=== PATIENT | male | born 1950 | race Caucasian/White ===

== ENCOUNTER → 2017-04-23 | Outpatient (CLI) | payer OTHER ==
[~2017-04-23] VITALS: Ht 182.9 cm; Wt 81.6 kg
[~2017-04-23] MED LIST: ANASPAZ0.125 MG PO; ANDROGEL5 GM TOP; ANDROGEL5 GM TRANSDERM; APAP500 PO; ASPIR 8181 MG PO; COLACE 100 MG100 MG; DEPO-TESTO100 MG/1 M IM; DIABETA 5MG TABL5 MG PO; GLUCOPHAGE500 MG PO; HYDROCODON-ACE1 EAC7 PO; LIPITOR20 MG PO; LISINOPRIL5 MG PO; NEURONTIN600 MG PO; ROBAXIN 750 MG750 M1; TRAMADOL 50 MG50 MG PO
--- NOTE | ~2017-04-23 | S ---
[facility] [place] [address] SURGICAL PATH RPT PROCEDURE Name: RILEY DANIELS Room #: [facility]#: [id number] Admission: 04/23/17 Date of : 48 Discharge: Report #: [id number] Path Case #: [id number] PATHOLOGY REPORT COLLECTION DATE: 04/23/2017 RECEIVED DATE: 04/23/2017 SUBMITTING PHYS: Dr. Gilson Green OTHER PHYS: Dr. Mervin Jon SPECIMEN(S) RECEIVED: A.Ascending colon polyp B.Transverse colon polyp * * * * * * * * * * * * FINAL DIAGNOSIS: A. "Ascending colon polyp", biopsy: - Tubular adenoma; no high-grade dysplasia. B. "Transverse colon polyp", biopsy: - Tubular adenoma; no high-grade dysplasia. (CLW:mel; 04/25/2017) PATHOLOGIST: Elaine Davila M.D. REPORT ELECTRONICALLY SIGNED BY: Elaine Davila M.D. DATE/TIME: 04/25/2017 15:24 * * * * * * * * * * * * GROSS PATHOLOGY: A. Received in formalin labeled "Riley Daniels, ascending colon polyp," are 3 segments of dudley soft tissue measuring 1.0 x 0.2 x 0.2 cm in aggregate dimensions and ranging from 0.2 to 0.4 cm in maximum dimension. The specimen is submitted entirely in cassette A1. B. Received in formalin labeled "Amira, Riley B, transverse colon polyp," are 2 segments of dudley soft tissue measuring 0.7 x 0.2 x 0.2 cm in aggregate dimensions and ranging from 0.3 to 0.4 cm in maximum dimension. The specimen is submitted entirely in cassette B1. (SARWAT; 04/24/2017) CLINICAL HISTORY: Colon cancer screening, screening, colon polyps INITIAL CPT CODE(S): A; 50339 B; 85887 [facility] [address] [address] SURGICAL PATH RPT PROCEDURE Name: RILEY DANIELS [facility] [id number] Admission: 04/23/17 Date of : 48 Discharge: Report #: [id number] Path Case #: [id number] [address] [facility] [place] [address] Technical [facility] by [facility] at [address] [place] [address], [facility] [address] [address]. [facility] [address] [place] [address] PHONE: [phone] DIRECTOR: Brad Winter M.D. * * * END OF REPORT * * *
--- NOTE | ~2017-04-23 | P ---
[facility] [place] [address] PROCEDURE REPORT Name: RILEY DANIELS Room #: REG [facility]#: [id number] Admission: 04/23/17 Attend Phys: Gilson Moore Discharge: Date of : 48 Report #: [id number] THIS REPORT FOR: //name// CC: Gilson Jon MD DATE OF SERVICE: 04/23/2017 PROCEDURE PERFORMED: Colonoscopy with biopsies. HISTORY OF PRESENT ILLNESS: The patient is a 67-year-old male who presents today for routine screening colonoscopy. Denies any family history of colon cancer or inflammatory bowel disease. His weight has been stable. He does report constipation at times with long history. PROCEDURE: The risks and benefits of the procedure were explained to the patient, those risks including, but not limited to bleeding, perforation, and the risk of sedation. He understood these risks and gave informed consent. Sedation was given using propofol per anesthesia. Next, a digital rectal exam was initially performed, which was normal. Next, using a standard [employer] colonoscope, the scope was placed in the patient's anus and advanced under direct vision to the cecum. The overall prep was good in most areas. Multiple washings and aspirations were performed. The cecum and ileocecal valve were normal in appearance. In the ascending colon, there was a 5 mm sessile polyp, this was removed with cold forceps, otherwise normal. Transverse colon, a 4-mm sessile polyp also removed with cold forceps. The descending and sigmoid colon were normal. The rectal mucosa was normal. On retroflexion, no abnormalities were noted. The scope was then withdrawn and the procedure terminated. The patient tolerated the procedure well. IMPRESSION: 1. Two small colonic polyps. 2. Otherwise, normal colonoscopy. RECOMMENDATIONS: 1. Await biopsy results. 2. If polyps are hyperplastic, repeat in 10 years; if adenomatous polyp, repeat in 5 years. Thank you for allowing me to participate in his care. <ELECTRONICALLY SIGNED> By: Gilson Green MD 04/25/17 1510 [id number] Gilson Green MD /nt
== END | disposition home or self-care (01) ==
LOC: GI 08:17
DX: D12.2 Benign neoplasm of ascending colon (principal); D12.3 Benign neoplasm of transverse colon; E11.9 Type 2 diabetes mellitus without complications; Z87.891 Personal history of nicotine dependence; Z98.890 Other specified postprocedural states
CPT/HCPCS: 62110; 62900